=== PATIENT | male | born 1950 | race Caucasian/White ===

== ENCOUNTER 2025-04-09 08:27 | Outpatient (CLI) | payer MEDICARE, MEDICAID, SELFPAY ==
--- OUTSIDE RECORDS SUMMARY | 2025-04-09 08:59 | XMS_ITS | Continuity of Care Document ---
Author Organization [employer] Address [address] [place] [id number] Phone Care Team Providers Care Coutierier Name Role Phone Javier CONTRERAS LEGAL RESEARCHER-C, Tasha Unavailable Unavai lable Allergies, Adverse Reactions, Alerts Substance Reaction Status Criticality ampicillin Hives/Skin Rash Active No Informati on Iodinated Contrast Media Passed out Active No Information Medications Medication Instructions Dosage Effective Dates (start - stop) Status Comments ATORVASTATIN 20MG++++++++++++++++ TAKE 1 TABLET BY ORAL ROUTE EVERY NIGHT. - Active METOPROL TAR 25MG+++++++++++++++1S T TAKE 1 TABLET BY ORAL ROUTE 2 TIMES EVERY DAY 25 MG - Active LISINOPRIL 40MG+++++++++++++++ TAKE 1 TABLET BY ORAL ROUTE EVERY DAY - Active AMLODIPINE 5MG+++++++++++++ TAKE 1 TABLET BY ORAL ROUTE 2 TIMES EVERY DAY 5 MG - Active JARDIANCE 25MG++++++++++ TAKE 1 TABLET BY ORAL ROUTE EVERY DAY IN THE MORNING - Active blood pressure test kit-wrist cuff Check blood pressure twice daily. - Active METFORMIN 500 MG+++++++++++++++ TAKE 1 TABLET BY ORAL ROUTE 2 TIMES EVERY DAY WITH MORNING AND EVENING MEALS 500 MG - Active nitroglycerin 0.[address] 1 tablet by sublingual route at the 1st sign of attack; may repeat in 5 min until relief x 3 tabs MAX, GO TO ER - Active One-A-Day Essential tablet 1 tab po qd - Active aspirin 325 mg tablet take 1 tablet by oral route every day 325 MG - Active METOPROL TAR 25MG+++++++++++++++KE Y TAKE 1 TABLET BY ORAL ROUTE 2 TIMES EVERY DAY 25 MG - No Longer Active LISINOPRIL 40MG+++++++++++++++ TAKE 1 TABLET BY ORAL ROUTE EVERY DAY - No Longer Active ATORVASTATIN 20MG+++++++++++++ TAKE 1 TABLET BY ORAL ROUTE EVERY NIGHT. - No Longer Active AMLODIPINE 5MG+++++++++++++++++ TAKE 1 TABLET BY ORAL ROUTE 2 TIMES EVERY DAY 5 MG - No Longer Active Procedures Procedure Date OFFICE/OUTPATIENT VISIT, EST OFFICE/OUTPATIENT VISIT, EST OFFICE/OUTPATIENT VISIT, EST ROUTINE VENIPUNCTURE OFFICE/OUTPATIENT VISIT, EST Medicare Wellness, subseq visit 023 Depression screen annual OFFICE/OUTPATIENT VISIT, EST OFFICE/OUTPATIENT VISIT, EST Medicare Wellness, subseq visit 022 Depression screen annual OFFICE/OUTPATIENT VISIT, EST OFFICE/OUTPATIENT VISIT, EST OFFICE/OUTPATIENT VISIT, EST OFFICE/OUTPATIENT VISIT, EST PHONE E/M BY PHYS 11-20 MIN OFFICE/OUTPATIENT VISIT, EST OFFICE/OUTPATIENT VISIT, EST PRO PHONE CALL 21-30 MIN ROUTINE VENIPUNCTURE OFFICE/OUTPATIENT VISIT, EST OFFICE/OUTPATIENT VISIT, EST OFFICE/OUTPATIENT VISIT, EST OFFICE/OUTPATIENT VISIT, EST ROUTINE VENIPUNCTURE OFFICE/OUTPATIENT VISIT, EST OFFICE/OUTPATIENT VISIT, EST OFFICE/OUTPATIENT VISIT, EST COMPLETE CBC W/AUTO DIFF WBC ROUTINE VENIPUNCTURE OFFICE/OUTPATIENT VISIT, EST OFFICE/OUTPATIENT VISIT, NEW Advance Directives Directive Yes / No Effective Date File Name No Information Encounters Encounter Description Practice Location Reason(s) For Visit Diagnoses Date Provider Providers Copied on Encounter [facility], [address] [place] [address], [facility], tel:[phone] [facility] No Information 4 Javier Tasha. [address], [place], [facility][note 3], [place]. tel: [phone] [facility], [address] [place] [address], [facility], tel:[phone] [place] [address] No Information 4 Javier Tasha. [address], [place], [facility][note 3], [place]. tel: [phone] OFFICE/OUTPA TIENT VISIT, [facility], [address] [place] [address], [facility], tel: [phone] [facility] ER FOLLOW UP (chief complaint) Bladder massEnlarged prostateInfrarenal abdominal aortic aneurysm (AAA) without rupture 4 Javier Tasha. [address], [place], [facility][note 3], [place]. tel: [phone] [facility], [address] [place] [address], [facility], [place] tel: [phone] [facility] Abnormal CT scan, lungAAA (abdominal aortic aneurysm) without rupture 4 Javier Tasha. [address], [facility][note 3], [place]. tel: [phone] OFFICE/OUTPA TIENT VISIT, [facility], [address] [place] [address], [facility], [place] tel:[phone] [facility] 6 MONTH CHECK UP (chief complaint) Chronic bilateral low back pain with bilateral sciaticaLumbago with sciatica, right sideOther chronic painStatus post fallChronic left hip painType 2 diabetes mellitus with chronic kidney disease, without long-term current use of insulin, unspecified CKD stageEssential (primary) hypertensionMixed hyperlipidemiaNico bernadette dependence, cigarettes, uncomplicated Hans- 0 4 Javier Tasha. [address] [place], [place], [facility][note 3], [place]. tel: [phone] [facility], [address] [place] [address], [facility], [place] tel:[phone] [facility] No Information 4 Javier Tasha. [address] [place], [address], [place]. tel: [phone] OFFICE/OUTPA TIENT VISIT, [facility], [address] [place] [address], [address], [place] tel:[phone] [facility] diabetes (chief complaint) Type 2 diabetes mellitus without complication, without long-term current use of insulinHyperalbumi nemiaEssential (primary) hypertension 3 Javier Tasha. [address] [place], [address], [place]. tel: [phone] OFFICE/OUTPA TIENT VISIT, [facility], [address] [place] [address], [address], [place] tel:[phone] [facility] LAB DRAW (chief complaint) Essential (primary) hypertensionHyperl ipidemia, unspecified hyperlipidemia type Nov- 3 Javier Tasha. [address] [place], [address], [place]. tel: [phone] [facility], [address] [place] [address], [address], [place] tel:[phone] [facility] No Information 3 Javier Tasha. [address] [place], [address], [place]. tel: [phone] [facility], [address] [place] [address], [facility], [place] tel:[phone] [facility] MCR wellness (chief complaint) Medicare annual wellness visit, subsequentBMI 29.0-29.9,adultAAA (abdominal aortic aneurysm) without ruptureEssential (primary) hypertensionGenera lized psoriasisH/O myocardial infarction, greater than 8 weeksH/O two vessel coronary artery bypass graftHyperlipidemi a, unspecified hyperlipidemia typeObstructive sleep apneaPulmonary nodulesType 2 diabetes mellitus with chronic kidney disease, without long-term current use of insulin, unspecified CKD stageNicotine dependence, cigarettes, uncomplicated 3 Jvaier Tasha. [address] [place], [address], [place]. tel: [phone] OFFICE/OUTPA TIENT VISIT, [facility], [address] [place] [address], [facility], [place] tel:[phone] [facility] CHECK UP (chief complaint) Essential (primary) hypertensionType 2 diabetes mellitus without complication, without long-term current use of insulinHyperlipide cathie, unspecified hyperlipidemia type 3 Javier Tasha. [address] [place], [address], [place]. tel: [phone] OFFICE/OUTPA TIENT VISIT, [facility], [address] [place] [address], [address], [place] tel:[phone] [facility] LIVING WILL HELP (chief complaint) Living will, counseling/discuss ionPulmonary nodules 2 Javier Tasha. [address] [place], [address], [place]. tel: [phone] [facility], [address] [place] [address], [address], [place] tel:[phone] [facility] H/O myocardial infarction, greater than 8 weeksH/O two vessel coronary artery bypass graftObstructive sleep apneaEssential (primary) hypertension 2 Javier Cordova. [address] [place], [address], [place]. tel: [phone] [facility], [address] [place] [address], [address], [place] tel: [phone] [facility] wellness (chief complaint) Encounter for Medicare annual wellness exam 2 Javier Cordova. [address] [place], [address], [place]. tel: [phone] OFFICE/OUTPA TIENT VISIT, [facility], [address] [place] [address], [address], [place] tel: [phone] [facility] [place] - LAB DRAW (chief complaint) Hyperlipidemia, unspecified hyperlipidemia type 2 Breckleatha Porsha. [address] [place] [address], [address], [place]. tel: [phone] OFFICE/OUTPA TIENT VISIT, [facility], [address] [place] [address], [address], [place] tel: [phone] [facility] FOLLOW UP (chief complaint) Traumatic rhabdomyolysis, subsequent encounterUncontrol led hypertensionHospit al discharge follow-up 2 Javier Cordova. [address] [place], [address], [place]. tel: [phone] OFFICE/OUTPA TIENT VISIT, [facility], [address] [place] [address], [address], [place] tel: [phone] [facility] PRE OP PHYSICAL (chief complaint) Cataract of right eye, unspecified cataract typePre-op exam 2 Javier Cordova. [address] [place], [address], [place]. tel: [phone] OFFICE/OUTPA TIENT VISIT, [facility], [address] [place] [address], [address], [place] tel:[phone] [facility] PRE OP CATARACT (chief complaint) Cataract of both eyes, unspecified cataract typePre-op examination 2 Javier Tasha. [address] [place], [address], [place]. tel: [phone] PHONE E/M BY PHYS 11-20 MIN [facility], [address] [place] [address], [address], [place] tel: [phone] [facility] 6 MONTH CHECK UP (chief complaint) Essential hypertensionType 2 diabetes mellitus with chronic kidney disease, without long-term current use of insulin, unspecified CKD stageAAA (abdominal aortic aneurysm) without rupture 1 Javier Tasha. [address] [place], [address], [place]. tel: [phone] OFFICE/OUTPA TIENT VISIT, [facility], [address] [place] [address], [address], [place] tel: [phone] [facility] 4 MONTH CHECK UP (chief complaint) COVID SCREENING COMPLETED/ 97.6 TEMP AT ARRIVAL (chief complaint) Type 2 diabetes mellitus with chronic kidney disease, without long-term current use of insulin, unspecified CKD stageEssential hypertensionHyperl ipidemia, unspecified hyperlipidemia type 0 Javier Tasha. [address] [place], [address], [place]. tel: [phone] OFFICE/OUTPA TIENT VISIT, [facility], [address] [place] [address], [address], [place] tel: [phone] [facility] LABS (chief complaint) Essential hypertension 0 Javier Tasha. [address] [place], [address], [place]. tel: [phone] [facility], [address] [place] [address], [address], [place] tel:[phone] [facility] 4 MONTH CHECK UP (chief complaint) Essential hypertensionHyperl ipidemia, unspecified hyperlipidemia typeType 2 diabetes mellitus with chronic kidney disease, without long-term current use of insulin, unspecified CKD stage 0 Javier Tasha. [address] [place], [address], [place]. tel: [phone] OFFICE/OUTPA TIENT VISIT, [facility], [address] [place] [address], [address], [place] tel: [phone] [facility] 4 MONTH CHECK UP (chief complaint) Essential hypertensionAAA (abdominal aortic aneurysm) without ruptureGeneralized psoriasisType 2 diabetes mellitus with chronic kidney disease, without long-term current use of insulin, unspecified CKD stageObstructive sleep apnea 9 Javier Tasha. [address] [place], [address], [place]. tel: [phone] OFFICE/OUTPA TIENT VISIT, [facility], [address] [place] [address], [facility], [place] tel: [phone] [facility] 4 MONTH CHECK UP (chief complaint) Type 2 diabetes mellitus with chronic kidney disease, without long-term current use of insulin, unspecified CKD stageGeneralized psoriasisObstructi ve sleep apneaEssential hypertension 9 Javier Tasha. [address] [place], [address], [place]. tel: [phone] OFFICE/OUTPA TIENT VISIT, [facility], [address] [place] [address], [address], [place] tel: [phone] [facility] BLOOD PRESSURE CHECK (chief complaint) Blood pressure check 9 Papi Rodriguez. [address] [place] [address], [address], [place]. tel: [phone] OFFICE/OUTPA TIENT VISIT, [facility], [address] [place] [address], [address], [place] tel: [phone] [facility] LAB FOLLOW UP (chief complaint) Essential hypertensionHyperl ipidemia, unspecified hyperlipidemia typeType 2 diabetes mellitus without complication, without long-term current use of insulinAllergic contact dermatitis, unspecified trigger 9 Javier Tasha. [address] [place], [address], [place]. tel: [phone] OFFICE/OUTPA TIENT VISIT, [facility], [address] [place] [address], [address], [place] tel: [phone] [facility] [place] - LAB DRAW (chief complaint) Type 2 diabetes mellitus with unspecified complications 0201 9 Javier Tasha. [address] [place], [facility][note 3], [place]. tel: [phone] OFFICE/OUTPA TIENT VISIT, [facility], [address] [place] [address], [address], [place] tel: [phone] [facility] 3 month med check (chief complaint) Essential hypertensionType 2 diabetes mellitus with complication, without long-term current use of insulinTobacco dependence 9 Javier Tasha. [address], [facility][note 3], [place]. tel: [phone] OFFICE/OUTPA TIENT VISIT, [facility], [address] [place] [address], [address], [place] tel: [phone] [facility] blood pressure check (chief complaint) Blood pressure check 8 Javier Tasha. [address], [facility][note 3], [place]. tel: [phone] [facility], [address] [place] [address], [address], [place] tel: [phone] [facility] Essential hypertensionBlood pressure checkAAA (abdominal aortic aneurysm) without rupture 8 8 Javier Tasha. [address] [place], [address], [place]. tel: [phone] [facility], [address] [place] [address], [address], [place] tel: [phone] [facility] here for blood pressure check (chief complaint) Essential hypertension 5 8 Javier Tasha. [address], [facility][note 3], [place]. tel: [phone] OFFICE/OUTPA TIENT VISIT, [facility], [address] [place] [address], [facility], tel:[phone] [facility] [place] - BLOOD DRAW (chief complaint) Essential hypertensionHyperl ipidemia, unspecified hyperlipidemia typeScreening for cardiovascular conditionScreening for malignant neoplasm of prostateType 2 diabetes mellitus with complication, without long-term current use of insulin 0 2 8 Javier Tasha. [address] [place], [address], [place]. tel: [phone] OFFICE/OUTPA TIENT VISIT, [facility], [address] [place] [address], [address], tel:[phone] [facility] EST CARE (chief complaint) Establishing care with new doctor, encounter forEssential hypertensionHyperl ipidemia, unspecified hyperlipidemia typeType 2 diabetes mellitus with complication, without long-term current use of insulinScreening for cardiovascular conditionScreening for malignant neoplasm of prostateH/O myocardial infarction, greater than 8 weeksH/O two vessel coronary artery bypass graftTobacco dependence Jul-0 8 Javier Tasha. [address] [place], [address], [place]. tel: [phone] Family History Family Member Type Diagnosis Age At Onset Paternal grandfather Problem (finding) Myocardial infa rction Brother Problem (finding) Myocardial infarction Sister Problem (finding) Myocardial infarction Father Problem (finding) Myocardial infarction Mother Problem (finding) Diabetes mellitus Immunizations Vaccine Date Status Comments Moderna COVID-19 Vaccine administered [facility]: Other Registry Moderna COVID-19 Vaccine administered [facility]: Other Registry Payers Payer name Insurance type Covered libertarian ID Authorabbya tileatha(s) [facility] [id number] Social History Type Description Quantity Date Captured Comments Sex Male Smoking Status No Information Chief Complaint And Reason For Visit No Information Reason For Referral Reason For Referral No Information Plan Of Treatment Date Type Action Status Goal Tobacco cessation counseling completed Goal Tobacco cessation counseling completed Goal Tobacco cessation counseling completed Goal Tobacco cessation counseling completed Keyon-26-2023 Goal Tobacco cessation counseling completed Goal Tobacco cessation counseling completed Goal Tobacco cessation counseling completed Goal Tobacco cessation counseling completed Goal Tobacco cessation counseling completed Goal Tobacco cessation counseling completed Goal Tobacco cessation counseling completed Goal Tobacco cessation counseling completed Goal Tobacco cessation counseling completed Goal Tobacco cessation counseling completed Goal Tobacco cessation counseling completed Goal Tobacco cessation counseling completed Referral Ordered: Urology (related to Bladder mass) ordered Referral Ordered: Oncology (related to Bladder mass) ordered Referral Ordered: Referrals: Oncology. Location: [facility]. Assume care ordered Referral Ordered: Referrals: Urology. Location: [facility]. Assume care ordered Referral Ordered: Vascular Surgery (related to AAA (abdominal aortic aneurysm) without rupture) ordered Referral Ordered: Referrals: Vascular Surgery. Location: [facility]. Assume care ordered Referral Ordered: CT ABD & PELVIS W/CONTRAST Appointment date/timeframe: 05/06/2024 ordered Referral Ordered: T-SPINE 2 VIEW ordered Referral Ordered: CT LOW DOSE LUNG CANCER SCREENING Appointment date/timeframe: 04/04/2024 ordered Referral Ordered: X-RAY EXAM HIP UNI 2-3 VIEWS Left ordered Referral Ordered: X-RAY EXAM OF L-S 2 OR 3 VIEWS ordered Referral Ordered: CT THORAX W/O DYE Appointment date/timeframe: 08/09/2022 ordered Referral Referred To: Zonia Schuler [address] [place] [address], [address] [phone] Ordered: Referrals: Allopathic & Osteopathic Physicians : Internal Medicine. Zonia Schuler. Evaluate and treat Appointment date/timeframe: 04/25/2022 ordered Referral Referred To: Aquiles Wilkinson [address] [place], [place], [phone] Ordered: Referrals: Allopathic & Osteopathic Physicians : Surgery : Vascular Surgery. Aquiles Wilkinson. Evaluate and treat Appointment date/timeframe: 01/31/2021 ordered Referral Ordered: US ABDL AORTA SCREEN AAA Appointment date/timeframe: 12/06/2020 ordered Referral Ordered: CT ABD & PELVIS W/O CONTRAST AAA ordered Referral Ordered: CT ANGIO ABDOM W/O & W/DYE Appointment date/timeframe: 08/15/2018 ordered Referral Ordered: X-RAY EXAM CHEST 2 VIEWS ordered Referral Ordered: ELECTROCARDIOGRAM, COMPLETE ordered Referral Ordered: RENAL ULTRASOUND COMPLETE STUDY AAA series Appointment date/timeframe: 07/25/2018 ordered Patient Education Benign Prostat ic Hyperplasia: Care Instructions completed Patient Education Home Blood Pressure [place] t: About This Test completed Patient Education Home Blood Pressure [place] t: About This Test completed Patient Education Learning About High Cho lesterol completed Patient Education Body Mass Index: Care I nstructions completed Patient Education Well Visit, Over 65: Ca re Instructions completed Patient Education Learning About High Cho lesterol completed Patient Education Advance Directives: Car e Instructions completed Patient Education Well Visit, Over 65: Ca re Instructions completed Patient Education Learning About High Cho lesterol completed Patient Education Rhabdomyolysis: Care In structions completed Patient Education Cataract Surgery: What to Expect at H~ completed Patient Education Abdominal Aortic Aneury sm: Care Instr~ completed Patient Education DASH Diet: After Your V isit completed Patient Education High Blood Pressure: Af ter Your Visit completed Patient Education High Blood Pressure: Af ter Your Visit completed Patient Education Learning About CPAP for Sleep Apnea completed Patient Education Learning About LAITH Inhi bitors completed Patient Education Sleep Apnea: After Your Visit completed History Of Present Illness Encounter Date Complaint History Of Prese nt Illness ER FOLLOW UP Pt is here for e r f/u from [facility] on 05/06. Pt states he had blood in his urine. CT of abdomen and labs were done. Pt states they didn't send him home with any medications and symptoms have since subsided. Pt states they mentioned getting an urology referral. Comments: Pt pre sents to the clinic for an ER follow up. Pt states that he went to [place] to have his scheduled CT scan for his aneurysm but states that he woke up that am with beet juice colored urine. PT states that he was having some mild pain and had some issues urinating with pressure and was passing a large blood clot. Pt states that Sunday was the first day that he had blood in his urine. Pt states that he was evaluated in ER and discharged and instructed to follow up with his PCP for a referral for a possible bladder mass. Pt states that his urine has cleared up and denies any blood in his urine at this time. Pt denies any abd pain. Pt's CT report shows focal and somewhat masslike hyperattenuation lesion in the left posterior urinary bladder. Adjacent wispy hyperattenuation is also seen. This is concerning for neoplasm with adjacent hemorrhage. Pt also had a noted prostatomegaly and recommended to evaluated with a PSA. Pt's PSA was done on 01/31/24 and it was 1.42. Pt is being scheduled for a vascular appt due to the aneurysm. I did speak with the patient about referring him to urology and oncology and he states agreement. Comments: Kris edgar presents to the clinic today for a 6-month checkup with regards to his type 2 diabetes, hypertension, hyperlipidemia, and chronic smoking. Patient states that he has been taking his medications as directed. Patient denies any current complaints or concerns about his medications at this time. Patient states that he does not typically check his blood sugar every day. Patient states that he will probably not check his blood sugar every day. I did advise the patient that I would like him to check it if he is ill and he states verbal understanding. I did explain the benefits of checking his blood sugar daily and he states that he will take it under advisement. Patient denies any wounds to his body or feet at this time. Patient states that he does check his feet daily. Patient states that he does try to eat a healthy diet but is restricted due to cost associated with his grocery bill. Patient states that he does drink water every day. Patient states that he is not a very active person but does try to get out and walk at times. Patient's vital signs were reviewed today and his blood pressure is noted to be slightly elevated at 145/69 with a pulse of 50 and his oxygen saturations was noted to be 90%. Patient was advised that the goal of his blood pressure is 120/80 or below. I did speak with the patient about checking his blood pressure in the morning and at night and to bring his readings with him in about a week so we can review and he states verbal understanding. Patient states that he has not missed any of his medication dosing. Patient states overall he has been doing fairly well. Patient denies any recent falls. Patient states that his main concern is that he has been having a lot of low back and left hip pain. Patient denies any injury or trauma to his back and hip except for it has been kind of lingering since he was found on the floor in his apartment. Patient denies any loss of bowel or bladder control. Patient denies any saddle numbness. I did speak with the patient about getting him some x-rays and to review those and to make the next step and he states verbal agreement. I also did speak with the patient about the fact that he does still continue to smoke at least a pack a day and that he has smoked for approximately 55 years. I did recommending that he is due for his low-dose lung CT and he states verbal agreement. Patient was encouraged to stop smoking and he states verbal understanding. Patient denies any other concerns at this time and was encouraged to follow-up in 6 months. 6 MONTH CHECK UP diabetes Managing with: O ral medications. Comments: Pt's V S were reviewed today and noted to be elevated. Pt's initial BP was noted to be 173/83 with a recheck of 169/79. Pt states that he has smoked approx 2-3 cigs this morning and drank 2-3 cups of coffee before coming to his appt. Pt was advised that the goal of his BP is 120/80 or below. Pt states that he has been taking his blood medication as directed. Pt denies any complaints or concerns about their medications or health at this time. Pt denies any chest pain, chest pressure, SOB, cough, dizziness, or lower ext edema. Pt was encouraged to increase their intake of water daily. Avoid excessive caffeine and sodas. Pt was encouraged to decrease salt intake. Pt was encouraged to eat a health diet. Pt was encouraged to check BP twice daily and record and bring to next appt.Pt states that he has been taking his diabetes medications as directed. Pt denies any complaints or concerns about his health at this time. Pt recently had his labs done and they were reviewed with him. Pt was advised that his micro albumin and Cr was elevated. I spoke with him about jardiance and how the medication works and he states that he does not have prescription insurance currently and will have after the beginning of the year and will consider it then. Pt denies any wounds to his body or feet at this time. Pt states that he does check his feet daily. Pt states that he does not check his blood sugars daily and was encouraged to do so and he states that he will think about it. PT denies any complaints or concerns about his health at this time. PT was encouraged to eat a diet rich in lean meats, fruits, and vegetables. Pt was encouraged to increase his intake of water daily. Pt was encouraged to use proper sleep hygiene. Pt was encouraged to exercise and stop smoking and he states understanding. LAB DRAW [facility] wellness Depression scree joe score was 2. The client has not felt depressed and has had interest and pleasure doing things recently. Functional Status: (Functional status has not changed) on 03/23/2023. Cognitive Status: (Cognitive status has not changed) on 03/23/2023. The ''Up and Go'' test took less than 30 seconds andthe client does not need help with activities of daily living. The client is at risk for falls. The client has not fallen in the last year. The fall(s) did not result in injury. Client's activity level is sedentary. Client exercises occasionally. The client has smoke detectors, carbon monoxide detectors, gas heating in the home. There is no radon in the client's home. Client reports using a seatbelt in vehicles. Client reports a 2000 calorie diet. Client denies recent weight gain. Client denies recent weight loss. Client reports taking a calcium supplement. Client reports taking a vitamin D supplement. Client reports taking a multivitamin daily. Client reports taking folic acid daily. Relevant history is negative for passive vaping exposure and alcohol use. In the past year the client has had 4 or more drinks in a day 0 time(s). Comments: PT's B IL is noted to be 29.13. Pt was advised of the risks and concerns associated with it. Pt was advised to eat a proper diet, rich in lean meats, fruits, and vegetables. Pt was encouraged to increase her intake of water daily. Pt was encouraged to increased her exercise with walking 3-5 times per week. PT was encouraged to use proper sleep hygiene. Pt was advised that a normal BMI is noted to be 25. CHECK UP Pt states Cardio logy decreased his Metoprolol to 50mg 1/2 tab po bid, and he states he has not had any metformin for a few weeks, he states he was unable to get a refill until after his visit today. CHECK UP (comments) Patient pres ents to the clinic for 6-month checkup with regards to his hypertension, type 2 diabetes, and hyperlipidemia. Patient states that he recently seen his air pollution analyst and they did decrease his metoprolol dosing to 25 mg twice a day. Patient states that he is also been out of his metformin for a couple of weeks because the pharmacy stated he needed an appointment. Patient was advised that we do not want him to run out of his medicines and to always call our office and we will refill that for him until he is able to be seen and he states verbal understanding. Patient's states that he has been taking all of his other medications as directed. Patient denies any complaints or concerns at this time. Patient's vital signs were reviewed today and his blood pressure is noted to be elevated at 174/81 with a recheck of 161/76. Patient was advised that the goal of his blood pressure is 120/80 or below. Patient denies any chest pain, chest pressure, shortness of breath, cough, dizziness, or lower extremity edema. Patient states that he did take his blood pressure medicine prior to coming in and states that he had his blood pressure checked at his air pollution analyst's office and it was 130/80 the other day. Patient denies any other complaints or concerns about his health at this time. Patient states that he has not checked his blood sugar in a while. Patient states that he does not typically check it daily. Patient was encouraged to check it daily and he states understanding. Patient was encouraged to eat a diet rich in lean meats, fruits, and vegetables. Patient was encouraged to exercise 3-5 times per week with something simple as walking. Patient was encouraged to use proper sleep hygiene. Patient was encouraged to increase his intake of water daily. Patient was encouraged to follow-up in 6 months and to call the office with any acute concerns. LIVING WILL HELP LIVING WILL HELP (comments) Patient presents to the clinic today to discuss his living well and also to complete it. Patient did bring a packet with him and states that he has been reviewing the packet and would like to make his daughter's his power of trust and estates attorney and has discussed this with them. I did sit with the patient for an extended period of time discussing the numerous options available with regards to a living will and treatment options that are available and he states verbal understanding. Patient and I did work on completing the living well and we did have witnesses within our office and he is also going to have his daughter sign it and bring us back a copy. I also was speaking with the patient about his previous hospitalization at [facility] and that he did have some numerous lung nodules that they did recommend a 6-month follow-up on and I will order that CT for him. [facility] wellness Depression scree joe score was 1. The patient has not felt depressed and has had interest and pleasure doing things recently. Functional Status: (Functional status has not changed) on 03/17/2022. Cognitive Status: (Cognitive status has not changed) on 03/17/2022. The ''Up and Go'' test took less than 30 seconds and the patient does not need help with activities of daily living. The patient is not at risk for falls. The patient has fallen 1 times in the last year. The fall(s) resulted in injury. Details: HOSPITAL STAY. Patient's activity level is sedentary. Patient exercises occasionally. The patient has smoke detectors, carbon monoxide detectors, gas heating in the home. There is no radon in the patient's home. Patient reports using a seatbelt in vehicles. Patient reports a 2000 calorie diet. Patient denies recent weight gain. Patient denies recent weight loss. Patient does not take calcium. Patient reports taking a vitamin D supplement. Patient reports taking a multivitamin daily. Patient reports taking folic acid daily. Relevant history is positive for tobacco use, passive smoke exposure. Relevant history is negative for passive vaping exposure, alcohol use. In the past year the patient has had 4 or more drinks in a day 0 time(s). [facility] wellness (comments) Pt's risk strat score is noted to be 14. Pt states depending on his insurance, he will participate in our CCM program. Pt declines any complaints or concerns at this time. [place] - LAB DRAW HOSPITAL FOLLOW UP Pt states the y had him on a 30 day dosing of prednisone, he states he called the Dr and asked when they were going to take him off of the med, and he states she told him they were taking him off of it, but then got another script fo 45 days, so pt states he weaned himself off of the prednisone, he states his last day was Tues. HOSPITAL FOLLOW UP (comments) Pt presents to the clinic for a hospital follow up. Pt states that he tripped at home over his cat and fell landing on a chair with metal casters and was unable to get up. Pt states that he fell on 12/26/2021 at approx 05:30 am and laid there until his land lords son seen him at approx 7 pm and EMS was called. Pt was transported to [facility] for evaluation. Pt states that he was evaluated and transferred to [facility] for admission. Pt was dx with rhabdo. Pt states that he was in the hospital for approx 1 week. Pt states that he was then transferred to [facility] for rapid recovery. PT states that he was at the correction for approx 1 week. Pt states that he has been home for approx 2-3 weeks. Pt states that he has follow up with the [facility] per the hospital discharge follow up. Pt states that he seen Dr. Tse. Pt states that they had him on a long dose of prednisone and he states that he stopped it on Tu at 20mg daily. I did speak with the patient about concerns of stopping steroids due to his rhabdo and he states understanding but does not like being on steroids. PT states that he feels like he is doing well at home. Pt states that his appetite is good. Pt states that he lost weight while he was in the hospital and correction but states that he has a hearty appetite at home. PT states they increased the amlodipine to 10mg daily and started him on prednisone. PT denies any falls since being home. Pt denies any complaints of concerns about his health as this time. Pt also states that he does not want his son, Javier Collado as his POA. Pt states that he wants his daughter, Hilary Hopkins as his POA. Pt was also given a Living will packet and encouraged to contact a driver's license examiner to help him complete his paperwork that he wants done. PRE OP PHYSICAL (comments) Pt presents to the clinic for a pre-op e xam. Pt is scheduled to have surgery with Dr. Liz on 12/15/21 for right eye cataract removal. 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 Wilkinson in 01/2021 and he is scheduled to see him in 01/2022.Spontaneous joint hemorrhage - DeniesExcessive nose bleeds - DeniesHx of Seizures - DeniesHx of tremors - Mild tremor to the left handPMHType 2 DMCKDHTNHyperlipidemiaOSAPsoriasisAAA - unrepairedMISurgical HxColonoscopyCABG x 3AppyI discussed with the patient the recommendation of early ambulation. Proper hydration and routine lab monitoring. Surgical course explained. Patient is well informed of surgical risk. Current medications reviewed. Proper diet and activity pre and post operatively discussed. PRE OP PHYSICAL PRE OP CATARACT (comments) Pt presents to the clinic for a pre-op e xam. Pt is scheduled to have surgery with Dr. Liz on 11/08/21 for left eye cataract removal. 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 Wilkinson in 01/2021 and he is scheduled to see him in 01/2022.Spontaneous joint hemorrhage - DeniesExcessive nose bleeds - DeniesHx of Seizures - DeniesHx of tremors - Mild tremor to the left handPMHType 2 DMCKDHTNHyperlipidemiaOSAPsoriasisAAA - unrepairedMISurgical HxColonoscopyCABG x 3AppyI discussed with the patient the recommendation of early ambulation. Proper hydration and routine lab monitoring. Surgical course explained. Patient is well informed of surgical risk. Current medications reviewed. Proper diet and activity pre and post operatively discussed. PRE OP CATARACT 6 MONTH CHECK UP (comments) Pt's visit was done via phone due to the COVID-19 concerns. Pt was contacted via my office phone to their home. Moon contacted the patient and performed her registration activities, Moon AYALA performed the med recon, depression screening, verbal consent for treatment, fall risk, smoking and vaping screening, allergy recon, and pertinent VS and the call was transferred to myself at the office. Pt and I were the only ones on the phone call.Patient's visit today is a 6-month checkup with regards to his hypertension along with his type 2 diabetes. Patient states that he has been taking his medications as directed. Patient denies any current complaints or concerns about his medications at this time. Patient states overall he has been failing fairly well and denies any concerns about his health at this time. Patient states that he does continue to smoke and was again encouraged to stop smoking to patient states understanding. Reduce his risk of heart attack, stroke, and an aortic dissection. Patient states that he has not followed up with [facility] due to his AAA and states that he really did not care for the doctor that he was previously seeing. Patient was advised that I really would like him to follow-up with cardiology yearly at least to have someone follow him for his AAA screening and he states verbal understanding. Patient is requesting a female physician preferably in [place] if possible. I did advise patient that I would place a referral and he states verbal understanding. Patient denies any chest pain, short chest pressure, shortness of breath, cough, dizziness, or lower extremity edema. Patient states overall he has been doing fairly well. Patient states that he is trying to eat a healthier diet. Patient was encouraged to exercise 3-5 times per week with something simple as walking. Patient was encouraged to increase his intake of water daily. Patient was encouraged to use proper sleep hygiene and states that he does use a CPAP machine as directed. Patient was encouraged to call the office with any acute concerns. Patient states that overall his blood sugars have been doing fairly well but he does not check them regularly. Patient was encouraged to check them daily and to record them and bring them to his next appointment. Patient was encouraged that we do need to do labs as soon as possible and he states that he will do those at the [facility] in January. Patient was encouraged to follow-up in 6 months and to call the office with any acute concerns.Patient's visit lasted 20 minutes. 6 MONTH CHECK UP 4 MONTH CHECK UP (comments) Patient presents to the clinic today to discuss his most recent labs that he had drawn at [facility] on 04/09/2020. Patient's glucose was noted to be 102. Patient's total cholesterol was 110, triglycerides 247, LDL 28, HDL 33. Patient's hemoglobin A1c was noted to be 6.6. Patient's PSA was 1.42. Patient's CBC had a white blood cell count of 8.09, hematocrit 47.5, hemoglobin 15.4, and platelets at 269. Patient states that he has been taking all of his medications as directed. Patient denies any current complaints or concerns about his medications at this time. I did review the patient's cholesterol results with him and I did advise him that his LDL is a little too suppressed and I am going to reduce his atorvastatin from 40 mg daily down to 20 mg daily and we will recheck his labs in the next 3 to 6 months and he states verbal understanding. Patient states that he checks his feet daily. Patient denies any wounds to his body or feet at this time. Patient states that he is still continuing to smoke and I did advise him to try and stop smoking and we discussed the diseases and risk associated with smoking and he states verbal understanding. Patient states overall he is doing well and denies any current complaints or concerns about his health at this time. Patient's blood pressure was noted to be 142/78 today but states he is taking his blood pressure medicine as directed and states that he is always had an elevated blood pressure when he was at the doctor's office. Patient denies any chest pain, chest pressure, shortness of breath, dizziness, headaches, or lower extremity edema. Patient was encouraged to follow-up in 4 months states verbal understanding. 4 MONTH CHECK UP COVID SCREENING COMPLETED/ 97.6 TEMP AT [facility] 4 MONTH CHECK UP 4 MONTH CHECK UP (comments) Pt's visit was done via telehealth/phone due to the COVID-19 concerns. Pt was contacted via my office phone to their home. Martina Colon contacted the patient and performed her registration activities and the calls was transferred to myself at the office. Pt and I were the only ones on the phone call. Patient's visit is for a 3-month checkup with regards to his hypertension, hyperlipidemia, and type 2 diabetes. Patient states that he has been taking his medications as directed. Patient denies any current complaints or concerns about his medications at this time. Patient states that overall he has been doing fairly well. Patient denies any chest pain, chest pressure, shortness of breath, dizziness, or lower extremity edema. Patient states that he has a chronic cough from smoking. Patient was advised to stop smoking and I did discuss the illnesses and diseases associated with. Patient states that his diabetes seems to be doing well and states that he does not typically check his blood sugars daily. Patient was encouraged to check his blood sugars daily but states that he is reluctant to at this time. I did advise the patient that I could send in a meter and he did this time. I did advise him that we do have a. Patient denies any wounds to his body or feet at this time. Patient states that he does check his feet daily. Patient states that overall he has been doing fairly well and is soon to follow-up with air pollution analyst but he does not have an appointment yet. Patient states that they call him for an appointment. Patient was encouraged to eat a diet rich in lean meats, fruits, and vegetables. Patient was encouraged to exercise 3-5 times per week with something simple as walking. Patient was encouraged to increase his intake of water daily. Patient was encouraged to stop smoking. Patient was encouraged to use proper sleep hygiene and to clean his CPAP as directed and he states verbal understanding. Patient was also advised that the goal of his blood pressure is 120/80 or below. Patient was also advised the goal of his hemoglobin A1c would. Patient typically does his labs with [facility] and it has been postponed due to the soto concerns and we will contact him when we open up the [facility] labs and he states understanding. Patient was encouraged to follow-up in 3 months and to call the office with any acute concerns.Patient's visit lasted 25 minutes. 4 MONTH CHECK UP 4 MONTH CHECK UP (comments) Patient presents to the clinic today for a 4-month checkup with regards to his hypertension, type 2 diabetes, and obstructive sleep apnea. Patient states that he is taking his medications as directed. Patient denies any current complaints or concerns about his medications at this time. Patient denies any chest pain, chest pressure, shortness of breath, cough, dizziness, or lower extremity edema. Patient states that he has not followed up with his air pollution analyst recently but states that he is due for his year when soon. Patient states that he is been reviewing old medical records and states that he has not found any records of an aneurysm in the past but states that his air pollution analyst wears that he has had one previously. Patient states that he is following up with him for routine follow-up on his aneurysm. Patient denies any concerns at this time. Patient states that he does check his feet daily. Patient denies any wounds to his feet or body at this time. Patient states that he is still treating his psoriasis but states that a lot of the areas have healed up but states that he is working on a couple other areas and I did provide him with Eucrisa samples today to try this due to his diabetes and trying to avoid steroid cream. Patient is to call the office in a couple weeks to let us know how his areas are healing with regards to the medicine. Patient states that he does not check his blood sugars daily. Patient was encouraged to check his blood sugars daily and to record them and bring them to his next office appointment. Patient states that he is wearing his CPAP daily. Patient states that he does not clean it as often as he should. Patient was encouraged to clean his CPAP daily and was advised of the risk associated with not cleaning it and he states verbal understanding. Patient states that he does feel rested when he wears his CPAP machine. Patient was encouraged to eat a diet rich in lean meats, fruits, and vegetables. Patient was encouraged to exercise 3-5 times per week with something simple as walking. Patient was encouraged to follow-up in 4 months.Patient's blood pressure was noted to be elevated today in the office slightly at 140/78. I did advise the patient that with regards to his aneurysm we are going to start amlodipine 5 mg and I do want him to come back for a blood pressure check in the next 2 weeks and he states verbal understanding. Patient was again and encouraged to stop smoking to reduce his risk and he states verbal understanding. 4 MONTH CHECK UP (comments) Patient presents to the clinic for a 4-m [place] checkup with regards to his type 2 diabetes, obstructive sleep apnea and hypertension. Patient states that he is taking his medications as directed. Patient denies any current complaints or concerns about his medications at this time. Patient states that he does not typically check his blood sugar daily but was advised to check it at least once per day and he states verbal understanding. Patient denies any wounds to his body or feet at this time. Patient states that he does check his feet daily. Patient states that he is working on trying to decrease his smoking to some degree. Patient was encouraged to quit and was advised of the illnesses associated with it and he states verbal understanding. Patient states that the rash to his arms have been getting worse. Patient states that he has tried [id number] hydrocortisone cream with no improvement. Patient states that the area is do not itch but seems to be getting bigger and scalier. I did advise the patient that I would put him on a prednisone taper and advised him to watch his blood sugars because this could raise his blood sugars and I will also provide him with some Eucrisa samples to try and he is to call us in 2 weeks to let us know how he is doing with the rash. Patient states verbal understanding. Patient states that he needs a new CPAP from [facility]. Patient states that he has had his for over 10 years and it does not seem to be operating properly. Patient states that he does clean his equipment as he is supposed to. Patient states that he is not more the equipment in a little while because it does not seem to be operating properly. I did explain the risk and benefits of not treating sleep apnea with the what if's could happen if he does not treat it. Patient states verbal understanding. I advised the patient that I would place a new order and send it over today to [facility] and he states verbal understanding. Patient was advised to eat a diet rich in lean meat, fruits, and vegetables. Patient was encouraged to exercise 3-5 times per week with something simple as walking. Patient was encouraged to follow-up in 4 months and advised that we will check his labs in 2 months and he states verbal understanding. Patient was encouraged to call the office with any acute concerns and he states verbal understanding. 4 MONTH CHECK UP BLOOD PRESSURE CHECK LAB FOLLOW UP (comments) Patient presents to the clinic today for a checkup with regards to his hypertension, hyperlipidemia, type 2 diabetes. Patient recently had labs done on 01/29/2019 and he is here to review patient's CMP was noted to be within normal limits with the exception of his limbs were slightly low at 24. Patient's CMP showed a glucose of 108, BUN and creatinine and GFR within normal limits, sodium and potassium are within normal limits, alk phos, AST, and ALT are within normal limits, patient's cholesterol was noted to be 106, triglycerides 313, LDL 16, HDL 27, his hemoglobin A1c was 6.6, magnesium 2.0. I advised the patient that we would refer these lab results to his air pollution analyst and he states verbal understanding. Patient is doing very well with his blood sugar control and is currently taking metformin 1 tablet twice a day. Patient was encouraged to keep up the good work and to continue to try and work on his triglycerides. Patient states verbal understanding. Patient was encouraged to eat a diet rich in lean meats, vegetables, and fruit. Patient was encouraged to exercise 3-5 times per week with something as simple as walking. Patient states verbal understanding. Patient was provided with information to stop smoking and he states verbal understanding. Patient states that he is smoked for years and it is more of a habit and he will try but he cannot guarantee success. Patient's blood pressure was noted to be elevated today in office of 160/74 and his last reading was 156/80. I advised the patient that we would add a low-dose lisinopril to his evening regimen and he states verbal understanding. Patient is to return in 2 weeks for blood pressure check. Patient denies any chest pain, chest pressure, shortness of breath, cough, dizziness, or lower extremity edema. Patient states that he does have an appointment scheduled with his air pollution analyst in the next couple of weeks. Patient states that he checks daily for wounds and denies any wounds to his body or feet at this time.Patient states that he has a rash to his bilateral forearms. Patient states that he noticed the rash after he switched his laundry softener. Patient denies any warmth, exudate, fever, or chills at this time. Patient states that it does itch and burn from time to time. Patient states that he has been using some [id number] cream but is unsure of what it is at this time. Patient was encouraged to get hydrocortisone cream and to use a good moisturizing lotion to the area twice a day. LAB FOLLOW UP [place] - LAB DRAW 3 month med check (comments) Patient presents to the clinic today for his hypertension and diabetes checkup. Patient states that he has been taking his medications as directed. Patient denies any current complaints or concerns about his medications at this time. Patient states that he has been following up with his air pollution analyst as directed and was evaluated for his aneurysm in his abdomen and it was advised that it has not grown in over 10 years and it was the exact same size as previous. Finishing Technician states that he will monitor and he will follow-up with him yearly for this. Patient states that the air pollution analyst did change his lisinopril dosing from 20 mg twice a day to 40 mg once a day but left all other medications as they were. Patient states that he is checking his feet daily. Patient denies any current complaints or concerns about wounds to his body or his feet. Patient states that he is still smoking but he has been thinking about trying to stop smoking. Patient was encouraged to stop smoking due to the increase of his aneurysm increasing along with his blood pressure and decreasing his peripheral circulation. Patient states verbal understanding. Patient denies any new diagnosis he medications, allergies, surgeries, or doctors since his last visit here previously.I did speak with the patient concerning his insurance concerns and he currently just has Medicare and cannot afford a supplement since his diabetes is fairly well controlled we will see him every 6 months to help eliminate a financial burden and he is to call with any acute concerns and he states verbal understanding. 3 month med check blood pressure check here for blood pressure check [place] - BLOOD DRAW EST CARE (comments) Pt presents to the clinic to establish care. Pt states that he was previously seeing Dr. Faustin. PT states that he has not been seen since 06/2017. Pt states concerns that he has been out of medication since September 2017 due to he did not have a doctor nor insurance. Pt states that he knows that his blood pressure is high and this is why he is here. Pt states that he has been watching his diet and trying to stay as healthy as he can until he could get into to be seen. PT states that he recently was able to get onto medicare in April. Pt also has a lifeline screening review with him in office today to review. Pt states the following:Allergies - Ampicillin, CT dyeMedications - See list OTC - Aspirin 325mg daily Flu - DeniesPneumonia - DeniesImmunizations - 2012Lab - 2017Colonoscopy - Refuses Dentist - No teethVision - 2018Smoke - 1.5 ppdAlcohol - DeniesIllicit - DeniesPMHHTNHyperlipidemiaType 2 DMMISurgeries AppyGSW to abd w/resectionCABG x 2Family HxFather - CAD, CABG Mother - Dementia, Cervical CaPaternal grandfather - MIPaternal grandmother - UnknownMaternal grandfather - CADMaternal grandmother - Cancer EST CARE Functional Status Date Functional Assessmen t No Information Instructions Date Instruction Additional Infor avelino Attend scheduled tae t with specialists. Related to Bladder mass Observe for worsening s/s. Relat ed to Bladder mass Call office with any acute concerns. Related to Bladder mass Attend scheduled tae t with specialists. Related to Enlarged prostate Observe for worsening s/s. Relat ed to Enlarged prostate Call office with any acute concerns. Related to Enlarged prostate Attend scheduled tae t with specialists. 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 Relat ed to Infrarenal abdominal aortic aneurysm (AAA) without rupture Call office with any acute concerns. Related to Infrarenal abdominal aortic aneurysm (AAA) without rupture Take medication as directed. Rel ated to Essential (primary) hypertension Rest, elevation, cold pack Relat ed to Chronic left hip pain Observe for worsenin g s/s. Proper activity. Fall precaution Related to Chronic left hip pain Have xrays completed as soon as possible. Related to Chronic left hip pain Call office with any acute concerns. 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 Relat ed to Type 2 diabetes mellitus with chronic kidney disease, without long-term current use of insulin, unspecified CKD stage Take medication as directed. Rel ated to Type 2 diabetes mellitus with chronic kidney disease, without long-term current use of insulin, unspecified CKD stage Proper diet, exercis e and activity and activity Related to Mixed hyperlipidemia Follow a low sodium diet. Relate d to Essential (primary) hypertension Stop smoking. Related to Essen tial (primary) hypertension Have Ct done as scheduled. Relat ed to Nicotine dependence, cigarettes, uncomplicated Follow a low calorie . Weight management Related to Mixed hyperlipidemia Proper medication in take, observe for side effects Related to Mixed hyperlipidemia Observe for worsening s/s. Relat ed to Type 2 diabetes mellitus without complication, without long-term current use of insulin Encouraged routine e ye, dental and foot care. Immunization Related to Type 2 diabetes mellitus without complication, without long-term current use of insulin Encouraged home bloo d sugar monitoring. Avoid hypoglycemia Related to Type 2 diabetes mellitus without complication, without long-term current use of insulin Proper diet, exercis e and activity. Goal of treatment explained Related to Type 2 diabetes mellitus without complication, without long-term current use of insulin Follow prescribed diet plan. Rel ated to Type 2 diabetes mellitus without complication, without long-term current use of insulin Take medication as directed. Rel ated to Type 2 diabetes mellitus without complication, without long-term current use of insulin Call office with any acute concerns. Related to Type 2 diabetes mellitus without complication, without long-term current use of insulin Low salt diet. Obser ve for worsening symptoms Related to Hyperalbuminemia Increase clear fluids. Related t o Hyperalbuminemia Call office with any acute concerns. Related to Hyperalbuminemia Increase activity. Related to Es sential (primary) hypertension Follow a low sodium diet. Relate d to Essential (primary) hypertension Take medication as directed. Rel ated to Essential (primary) hypertension Take medication as directed. Rel ated to Medicare annual wellness visit, subsequent Quit smoking. Related to Medic are annual wellness visit, subsequent Increase clear fluids. Related t o Medicare annual wellness visit, subsequent Proper diet and exercise. Relate d to Medicare annual wellness visit, subsequent Proper sleep hygiene. Related to Medicare annual wellness visit, subsequent Counseled on dietary changes [id number] Counseled on weight reduction Increase activity. Related to Es sential (primary) hypertension Take medication as directed. Rel ated to Essential (primary) hypertension Follow a low sodium diet. Relate d to Essential (primary) hypertension Encouraged home bloo d sugar monitoring. Avoid hypoglycemia Related to Type 2 diabetes mellitus without complication, without long-term current use of insulin Proper diet, exercis e and activity. Goal of treatment explained Related to Type 2 diabetes mellitus without complication, without long-term current use of insulin Encouraged routine e ye, dental and foot care. Immunization Related to Type 2 diabetes mellitus without complication, without long-term current use of insulin Follow prescribed diet plan. Rel ated to Type 2 diabetes mellitus without complication, without long-term current use of insulin Proper diet, exercis e and activity and activity Related to Hyperlipidemia, unspecified hyperlipidemia type Proper medication in take, observe for side effects Related to Hyperlipidemia, unspecified hyperlipidemia type Follow a low calorie . Weight management Related to Hyperlipidemia, unspecified hyperlipidemia type Observe for worsenin g signs and symptoms Related to Living will, counseling/discussion Avoid medication mis use. Observe for side effect Related to Living will, counseling/discussion Take medication as directed. Rel ated to Living will, counseling/discussion Have xrays completed as soon as possible. Related to Pulmonary nodules Observe for worsenin g signs or symptoms. Fall precaution Related to Pulmonary nodules Importance of treatm ent regimen as well as side effect discussed Related to Pulmonary nodules Counseled on dietary changes Increase clear fluids. Related t o Encounter for Medicare annual wellness exam Proper diet and exercise. Relate d to Encounter for Medicare annual wellness exam Proper sleep hygiene. Related to Encounter for Medicare annual wellness exam Counseled on weight reduction Take medication as directed. Rel ated to Traumatic rhabdomyolysis, subsequent encounter Increase clear fluids. Related t o Traumatic rhabdomyolysis, subsequent encounter Observe for worsening s/s. Relat ed to Traumatic rhabdomyolysis, subsequent encounter Call office with any acute concerns. Related to Hospital discharge follow-up Take medication as directed. Rel ated to Hospital discharge follow-up Observe for worsening s/s. Relat ed to Hospital discharge follow-up Pt is a low risk for bleeding. R elated to Cataract of right eye, unspecified cataract type Pt METS score >4. Related to Cat aract of right eye, unspecified cataract type Pt is a low risk for bleeding. R elated to Cataract of right eye, unspecified cataract type Pt METS score >4. Related to Cat aract of right eye, unspecified cataract type Pt is a low risk for bleeding. R elated to Pre-op examination Pt's METS score is >4. Related t o Pre-op examination Observe for worsening s/s. Relat ed to AAA (abdominal aortic aneurysm) without rupture Follow a low sodium diet. Relate d to Essential hypertension Increase activity. Related to Es sential hypertension Take medication as directed. Rel ated to Essential hypertension Attend scheduled tae t with specialists. Related to AAA (abdominal aortic aneurysm) without rupture Have xrays completed as soon as possible. Related to AAA (abdominal aortic aneurysm) without rupture Take medication as directed. Rel ated to Type 2 diabetes mellitus with chronic kidney disease, without long-term current use of insulin, unspecified CKD stage Have labs completed as soon as possible. 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 Relat ed to Type 2 diabetes mellitus with chronic kidney disease, without long-term current use of insulin, unspecified CKD stage Take medication as directed. Rel ated to Type 2 diabetes mellitus with chronic kidney disease, without long-term current use of insulin, unspecified CKD stage Observe for worsening s/s. Relat ed to Type 2 diabetes mellitus with chronic kidney disease, without long-term current use of insulin, unspecified CKD stage Proper diet, exercis e and activity and activity Related to Hyperlipidemia, unspecified hyperlipidemia type Proper medication in take, observe for side effects Related to Hyperlipidemia, unspecified hyperlipidemia type Follow a low calorie . Weight management Related to Hyperlipidemia, unspecified hyperlipidemia type Call office with any acute concerns. Related to Type 2 diabetes mellitus with chronic kidney disease, without long-term current use of insulin, unspecified CKD stage Take medication as directed. Rel ated to Essential hypertension Stop smoking. Related to Essen tial hypertension Follow a low sodium diet. Relate d to Essential hypertension Call office with any acute concerns. 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 Relat ed to Type 2 diabetes mellitus with chronic kidney disease, without long-term current use of insulin, unspecified CKD stage Take medication as directed. Rel ated to Type 2 diabetes mellitus with chronic kidney disease, without long-term current use of insulin, unspecified CKD stage Follow a low calorie . Weight management Related to Hyperlipidemia, unspecified hyperlipidemia type Proper medication in take, observe for side effects Related to Hyperlipidemia, unspecified hyperlipidemia type Proper diet, exercis e and activity and activity Related to Hyperlipidemia, unspecified hyperlipidemia type Increase activity. Related to Es sential hypertension Take medication as directed. Rel ated to Essential hypertension Follow a low sodium diet. Relate d to Essential hypertension Use medication as directed. Rela jose carlos to Generalized psoriasis Observe for worsening s/s. Relat ed to Generalized psoriasis Increase activity. Related to Es sential hypertension Take medication as directed. Rel ated to Essential hypertension Follow a low sodium diet. Relate d to Essential hypertension Take medication as directed. Rel ated to AAA (abdominal aortic aneurysm) without rupture Call office with any acute concerns. Related to Generalized psoriasis Clean equipment as directed. Rel ated to Obstructive sleep apnea Proper sleep hygiene. Related to Obstructive sleep apnea Use medication as directed. Rela jose carlos to Generalized psoriasis Observe for worsening s/s. Relat ed to Generalized psoriasis Call office with any acute concerns. Related to Generalized psoriasis Take medication as directed. Rel ated to Type 2 diabetes mellitus with chronic kidney disease, without long-term current use of insulin, unspecified CKD stage Observe for worsening s/s. Relat ed to Type 2 diabetes mellitus with chronic kidney disease, without long-term current use of insulin, unspecified CKD stage Call office with any acute concerns. Related to Type 2 diabetes mellitus with chronic kidney disease, without long-term current use of insulin, unspecified CKD stage Wear cpap as directed. Related t o Obstructive sleep apnea Call office with any acute concerns. Related to AAA (abdominal aortic aneurysm) without rupture Observe for worsening s/s. Relat ed to AAA (abdominal aortic aneurysm) without rupture Take medication as directed Rela jose carlos to Type 2 diabetes mellitus with chronic kidney disease, without long-term current use of insulin, unspecified CKD stage Observe for worsening s/s. Relat ed to Type 2 diabetes mellitus with chronic kidney disease, without long-term current use of insulin, unspecified CKD stage Check blood sugars d aily and record. Related to Type 2 diabetes mellitus with chronic kidney disease, without long-term current use of insulin, unspecified CKD stage Follow a low sodium diet. Relate d to Essential hypertension Use cpap as directed. Related to Obstructive sleep apnea Observe for worsening s/s. Relat ed to Obstructive sleep apnea Clean and maintain e quipment as directed Related to Obstructive sleep apnea Take and use medication as direc jose carlos Related to Generalized psoriasis Observe for worsening s/s. Relat ed to Generalized psoriasis Call office with any acute concerns. Related to Generalized psoriasis Take medication as directed Rela jose carlos to Essential hypertension Stop smoking. Related to Essen tial hypertension Increase activity. Related to Es sential hypertension Take medication as directed. Rel ated to Essential hypertension Follow a low sodium, heart healthy diet. Related to Essential hypertension Proper diet, exercis e and activity and activity Related to Hyperlipidemia, unspecified hyperlipidemia type Proper medication in take, observe for side effects Related to Hyperlipidemia, unspecified hyperlipidemia type Take medication as directed Rela jose carlos to Hyperlipidemia, unspecified hyperlipidemia type Encouraged home bloo d sugar monitoring. Avoid hypoglycemia Related to Type 2 diabetes mellitus without complication, without long-term current use of insulin Proper diet, exercis e and activity. Goal of treatment explained Related to Type 2 diabetes mellitus without complication, without long-term current use of insulin Encouraged routine e ye, dental and foot care. Immunization Related to Type 2 diabetes mellitus without complication, without long-term current use of insulin Take medication as directed. Rel ated to Type 2 diabetes mellitus without complication, without long-term current use of insulin Call office with any acute concerns. Related to Type 2 diabetes mellitus without complication, without long-term current use of insulin Use OTC medication as directed R elated to Allergic contact dermatitis, unspecified trigger Use a hydrating lotion daily. Re lated to Allergic contact dermatitis, unspecified trigger Call office with any acute concerns. Related to Allergic contact dermatitis, unspecified trigger Stop smoking. Related to Essen tial hypertension Follow a low sodium diet. Relate d to Essential hypertension Take medication as directed. Rel ated to Type 2 diabetes mellitus with complication, without long-term current use of insulin Observe for worsening s/s. Relat ed to Type 2 diabetes mellitus with complication, without long-term current use of insulin Check blood sugars a s directed. Check feet daily. Related to Type 2 diabetes mellitus with complication, without long-term current use of insulin Illness associated w ith continuing use discussed Related to Tobacco dependence Take medication as directed Rela jose carlos to Essential hypertension Follow a low sodium diet. Relate d to Essential hypertension Have labs completed as soon as possible. Related to Essential hypertension Take medication as directed. Rel ated to Type 2 diabetes mellitus with complication, without long-term current use of insulin Have labs completed as soon as possible. Related to Type 2 diabetes mellitus with complication, without long-term current use of insulin Follow a DM diet. Related to Typ e 2 diabetes mellitus with complication, without long-term current use of insulin Have labs completed as soon as possible. Related to Screening for cardiovascular condition Quit smoking. Related to Scree joe for cardiovascular condition Have labs completed as soon as possible. Related to Screening for malignant neoplasm of prostate Observe for worsening s/s. Relat ed to H/O myocardial infarction, greater than 8 weeks Take medication as directed. Rel ated to Hyperlipidemia, unspecified hyperlipidemia type Have labs completed as soon as possible. Related to Hyperlipidemia, unspecified hyperlipidemia type Stop smoking. Related to Hyper lipidemia, unspecified hyperlipidemia type Take medication as directed. Rel ated to Essential hypertension Have labs completed as soon as possible. Related to Essential hypertension Take medication as directed. Rel ated to Hyperlipidemia, unspecified hyperlipidemia type Have labs completed as soon as possible. Related to Hyperlipidemia, unspecified hyperlipidemia type Stop smoking. Related to Hyper lipidemia, unspecified hyperlipidemia type Assessments Type Assessment Date No Information Patient Care Teams Name Effective Dates (start - stop) Status Members No Information
--- OUTSIDE RECORDS SUMMARY | 2025-04-09 08:59 | XMS_ITS | Continuity of Care Document ---
Author Organization [facility] [place] [address] [place] [address] [place] [address] Phone Care Team Providers Care Director Of Market Analysis Name Role Phone Silvano Day MD Unavailable Unavailable Allergies, Adverse Reactions, Alerts Substance Reaction Status Criticality ampicillin Active No Information Medications Medication Instructions Dosage Effective Dates (start - stop) Status Comments amlodipine 5 mg tablet TAKE 1 TABLET BY ORAL ROUTE EVERY NIGHT. - Active atorvastatin 20 mg tablet TAKE 1 TABLET BY ORAL ROUTE EVERY DAY - Active lisinopril 40 mg tablet TAKE 1 TABLET BY ORAL ROUTE EVERY DAY - Active metformin 500 mg tablet TAKE 1 TABLET BY ORAL ROUTE 2 TIMES EVERY DAY WITH MORNING AND EVENING MEALS - Active metoprolol tartrate 50 mg tablet TAKE 1 TABLET BY ORAL ROUTE 2 TIMES EVERY DAY WITH MEALS - Active aspirin 81 mg tablet,delayed release take 1 tablet by oral route every day 81 MG - Active Procedures Procedure Date No Charge Refraction No Charge GDX Retina IOLMaster-Technical No Charge Orbscan No Charge Optomap Fundus Photos 021 Office/outpatient Visit, New Advance Directives Directive Yes / No Effective Date File Name No Information Encounters Encounter Description Practice Location Reason(s) For Visit Diagnoses Date Provider Providers Copied on Encounter [facility], [address], [place], [place], [id number], [place] tel:[phone] SEC Jose Lara No Information 1 Shay Schaefer. [address], [place], [place], [address], [place]. tel:[phone] Office/outpa tient Visit, [facility], [address] [place] [address] [address], [place], [place], [address], tel:[phone] SEC Juan Luis [place] Professional Cataract evaluation (chief complaint) Type 2 diabetes mellitus without complications Dry eye syndrome of bilateral lacrimal glandsAge-rel ated nuclear cataract, bilateral 1 Shay Schaefer. [address] [facility], [place], [place], [address], [place]. tel:[phone] Referring Provider: Roshan Reid OD, [address] [place], [address]. tel:[phone] [facility], [address] [place], [place] [address], [place], [place], [address], [place] tel:[phone] SEC Jose Lara No Information 1 Shay Schaefer. [address], [facility] [place], [address], [place]. tel:[phone] Family History Family Member Type Diagnosis Age At Onset No Information Payers Payer name Insurance type Covered green party ID Authoriza tion(s) [place] [id number] Social History Type Description Quantity Date Captured Comments Alcohol Use Details Unknown Caffeine Use Details Unknown Tobacco Use Status Smoking Status No Information Sex Male Chief Complaint And Reason For Visit No Information Reason For Referral Reason For Referral No Information Plan Of Treatment Date Type Action Status Goal Tobacco cessation counseling completed Patient Education Cataract Surgery: What to Expect at H~ completed History Of Present Illness Encounter Date Complaint History Of Prese nt Illness Cataract evaluation The 71 year old male presents for a cataract evaluation per Dr. Reid. Patient is a Type II diabetic and doesn't check BS. Patient is having a hard time reading small print x 6 months. Patient states he is having a hard time seeing road signs and watching TV. Patient is bothered by glare around lights at night. Patient states the Dr. bridger Malave told him the left eye was bleeding. Functional Status Date Functional Assessmen t No Information Instructions Date Instruction Additional Infor avelino Impression/Plan Assessments Type Assessment Date No Information Patient Care Teams Name Effective Dates (start - stop) Status Members No Information
[2025-04-09 09:10] LABS: Hematocrit 44.2 % (37.0-46.0); Mean Corpuscular HGB Conc 31.7 g/dL (32-36); Mean Corpuscular Hemoglobin 28.6 pg (27.0-31.0); Mean Corpuscular Volume 90.2 fL (78.0-102.0); Mean Platelet Volume 9.6 fl (8.7-11.0); Platelet Count Result 476 K/mm3 (150-420); Red Cell Distribution Width 14.1 % (11.6-14.4); White Blood Count 7.7 K/mm3 (4.8-10.8)
[2025-04-09 09:23] LABS: INR 2.1; Prothrombin Time 21.4 Seconds (9.50-12.1)
[2025-04-09 09:29] LABS: Anion Gap 6 mmol/L (4-12); Blood Urea Nitrogen 20 mg/dL (9-20); Calcium 8.7 mg/dL (8.4-10.2); Carbon Dioxide 22 mmol/L (22-30); Chloride 108 mmol/L (98-107); Estimated Glomerular Filt Rate > 60; Glucose 192 mg/dL (65-110); Osmolality Calculated 289 mOsm/kg (285-295); Potassium 4.5 mmol/L (3.4-5.0); Sodium 136 mmol/L (137-145)
== END 2025-04-09 08:28 | disposition home or self-care (01) ==
LOC: CHSLAB 08:47
DX: E11.9 Type 2 diabetes mellitus without complications (principal); I73.9 Peripheral vascular disease, unspecified; I25.10 Atherosclerotic heart disease of native coronary artery without angina pectoris; I51.3 Intracardiac thrombosis, not elsewhere classified
CPT/HCPCS: 36415; 80048; 85027; 85610

== ENCOUNTER 2025-04-23 14:37 | Outpatient (CLI) | payer MEDICARE, SELFPAY ==
--- OUTSIDE RECORDS SUMMARY | 2025-04-23 14:42 | XMS_ITS | Continuity of Care Document ---
Author Organization [facility] Address [address] [place] [address] [place] [address] Phone Care Team Providers Care [employer] Tech Name Role Phone Silvano Day MD Unavailable Unavailable Allergies, Adverse Reactions, Alerts Substance Reaction Status Criticality ampicillin Active No Information Medications Medication Instructions Dosage Effective Dates (start - stop) Status Comments metoprolol tartrate 50 mg tablet TAKE 1 TABLET BY ORAL ROUTE 2 TIMES EVERY DAY WITH MEALS - Active metformin 500 mg tablet TAKE 1 TABLET BY ORAL ROUTE 2 TIMES EVERY DAY WITH MORNING AND EVENING MEALS - Active lisinopril 40 mg tablet TAKE 1 TABLET BY ORAL ROUTE EVERY DAY - Active atorvastatin 20 mg tablet TAKE 1 TABLET BY ORAL ROUTE EVERY DAY - Active amlodipine 5 mg tablet TAKE 1 TABLET BY ORAL ROUTE EVERY NIGHT. - Active aspirin 81 mg tablet,delayed release [...] Diagnoses Date Provider Providers Copied on Encounter [facility], [address], [place], [place], [address], [place] tel:[phone] SEC Jose Lara No Information 1 Shay Schaefer. [address] [facility], [place], [place], [address], [place]. tel:[phone] Office/outpa tient Visit, [facility], [address] [place] [address] [address], [place], [place], [address], tel:[phone] SEC Juan Luis [place] Professional Cataract evaluation (chief complaint) Type 2 diabetes mellitus without complications Dry eye syndrome of bilateral lacrimal glandsAge-rel ated nuclear cataract, bilateral 1 Shay Schaefer. [address] [facility], [address], [place], [place], [address], [place]. tel:[phone] Referring Provider: Roshan Reid OD, [address] [place], [address]. tel:[phone] [facility], [address] [place], [place] [address], [place], [place], [address], [place] tel:[phone] SEC Jose Lara No Information 1 Shay Schaefer. [address] [facility], [facility] [place], [address], [place]. tel:[phone] Family History Family Member Type Diagnosis Age At Onset No Information Payers Payer name Insurance type Covered green party ID Authoriza tion(s) [place] [id number] Social History Type Description Quantity Date Captured [...]
--- OUTSIDE RECORDS SUMMARY | 2025-04-23 14:42 | XMS_ITS | Continuity of Care Document ---
Author Organization [employer] Address [address] [place] [id number] Phone Care Team Providers Care Screen Tacker Name Role Phone Javier CONTRERAS HOUSEKEEPING DEPARTMENT WORKER-C, Tasha Unavailable Unavai lable Allergies, Adverse Reactions, [...] Diagnoses Date Provider Providers Copied on Encounter [facility], [address] [place] [address], [facility], tel:[phone] [facility] No Information 4 Javier Tasha. [address], [place], [facility], [place]. tel: [phone] [facility], [address] [place] [address], [facility], tel:[phone] [place] [address] No Information 4 Javier Tasha. [address], [place], [facility], [place]. tel: [phone] OFFICE/OUTPA TIENT VISIT, [facility], [address] [place] [address], [facility], tel: [phone] [facility] ER FOLLOW UP (chief complaint) Bladder massEnlarged prostateInfrarenal abdominal aortic aneurysm (AAA) without rupture 4 Javier Tasha. [address], [place], [facility], [place]. tel: [phone] [facility], [address] [place] [address], [facility], [place] tel: [phone] [facility] Abnormal CT scan, lungAAA (abdominal aortic aneurysm) without rupture 4 Javier Tasha. [address] [place], [address], [place]. tel: [phone] OFFICE/OUTPA TIENT VISIT, [facility], [address] [place] [address], [facility], [place] tel:[phone] [facility] 6 MONTH CHECK UP (chief complaint) Chronic bilateral low back pain with bilateral sciaticaLumbago with sciatica, right sideOther chronic painStatus post fallChronic left hip painType 2 diabetes mellitus with chronic kidney disease, without long-term current use of insulin, unspecified CKD stageEssential (primary) hypertensionMixed hyperlipidemiaNico bernadette dependence, cigarettes, uncomplicated Hans- 0 4 Javier Tasha. [address] [place], [place], [facility], [place]. tel: [phone] [facility], [address] [place] [address], [facility], [place] tel:[phone] [facility] No Information 4 Javier Tasha. [address] [place], [address], [place]. tel: [phone] OFFICE/OUTPA TIENT VISIT, [facility], [address] [place] [address], [address], [place] tel:[phone] [facility] diabetes (chief complaint) Type 2 diabetes mellitus without complication, without long-term current use of insulinHyperalbumi nemiaEssential (primary) hypertension 3 Javier Tasha. [address] [place], [address], [place]. tel: [phone] OFFICE/OUTPA TIENT VISIT, [facility], [address] [place] [address], [address], [place] tel:[phone] [facility] LAB DRAW (chief complaint) Essential (primary) hypertensionHyperl ipidemia, unspecified hyperlipidemia type Nov- 3 Javier Tasha. [address] [place], [address], [place]. tel: [phone] [facility], [address] [place] [address], [address], [place] tel:[phone] [facility] No Information 3 Javier Tasha. [address] [place], [address], [place]. tel: [phone] [facility], [address] [place] [address], [facility], [place] tel:[phone] [facility] MCR wellness (chief complaint) Medicare annual wellness visit, subsequentBMI 29.0-29.9,adultAAA (abdominal aortic aneurysm) without ruptureEssential (primary) hypertensionGenera lized psoriasisH/O myocardial infarction, greater than 8 weeksH/O two vessel coronary artery bypass graftHyperlipidemi a, unspecified hyperlipidemia typeObstructive sleep apneaPulmonary nodulesType 2 diabetes mellitus with chronic kidney disease, without long-term current use of insulin, unspecified CKD stageNicotine dependence, cigarettes, uncomplicated 3 Javier Tasha. [address] [place], [address], [place]. tel: [phone] OFFICE/OUTPA TIENT VISIT, [facility], [address] [place] [address], [facility], [place] tel:[phone] [facility] CHECK UP (chief complaint) Essential (primary) hypertensionType 2 diabetes mellitus without complication, without long-term current use of insulinHyperlipide cathie, unspecified hyperlipidemia type 3 Javier Tasha. [address] [place], [address], [place]. tel: [phone] OFFICE/OUTPA TIENT VISIT, [facility], [address] [place] [address], [address], [place] tel:[phone] [facility] LIVING WILL HELP (chief complaint) Living will, counseling/discuss ionPulmonary nodules 2 Javier Tasha. [address] [place], [address], [place]. tel: [phone] [facility], [address] [place] [address], [address], [place] tel:[phone] [facility] H/O myocardial infarction, greater than 8 weeksH/O two vessel coronary artery bypass graftObstructive sleep apneaEssential (primary) hypertension 2 Javier Cordova. [address] [place], [address], [place]. tel: [phone] [facility], [address] [place] [address], [address], [place] tel: [phone] [facility] wellness (chief complaint) Encounter for Medicare annual wellness exam 2 Javier Cordova. [address] [place], [address], [place]. tel: [phone] OFFICE/OUTPA TIENT VISIT, [facility], [address] [place] [address], [address], [place] tel: [phone] [facility] [place] - LAB DRAW (chief complaint) Hyperlipidemia, unspecified hyperlipidemia type 2 Breckleatha Porsha. [address] [place] [address], [address], [place]. tel: [phone] OFFICE/OUTPA TIENT VISIT, [facility], [address] [place] [address], [address], [place] tel: [phone] [facility] FOLLOW UP (chief complaint) Traumatic rhabdomyolysis, subsequent encounterUncontrol led hypertensionHospit al discharge follow-up 2 Javier Cordova. [address] [place], [address], [place]. tel: [phone] OFFICE/OUTPA TIENT VISIT, [facility], [address] [place] [address], [address], [place] tel: [phone] [facility] PRE OP PHYSICAL (chief complaint) Cataract of right eye, unspecified cataract typePre-op exam 2 Javier Cordova. [address] [place], [address], [place]. tel: [phone] OFFICE/OUTPA TIENT VISIT, [facility], [address] [place] [address], [address], [place] tel:[phone] [facility] PRE OP CATARACT (chief complaint) Cataract of both eyes, unspecified cataract typePre-op examination 2 Javier Tasha. [address] [place], [address], [place]. tel: [phone] PHONE E/M BY PHYS 11-20 MIN [facility], [address] [place] [address], [address], [place] tel: [phone] [facility] 6 MONTH CHECK UP (chief complaint) Essential hypertensionType 2 diabetes mellitus with chronic kidney disease, without long-term current use of insulin, unspecified CKD stageAAA (abdominal aortic aneurysm) without rupture 1 Javier Tasha. [address] [place], [address], [place]. tel: [phone] OFFICE/OUTPA TIENT VISIT, [facility], [address] [place] [address], [address], [place] tel: [phone] [facility] 4 MONTH CHECK UP (chief complaint) COVID SCREENING COMPLETED/ 97.6 TEMP AT ARRIVAL (chief complaint) Type 2 diabetes mellitus with chronic kidney disease, without long-term current use of insulin, unspecified CKD stageEssential hypertensionHyperl ipidemia, unspecified hyperlipidemia type 0 Javier Tasha. [address] [place], [address], [place]. tel: [phone] OFFICE/OUTPA TIENT VISIT, [facility], [address] [place] [address], [address], [place] tel: [phone] [facility] LABS (chief complaint) Essential hypertension 0 Javier Tasha. [address] [place], [address], [place]. tel: [phone] [facility], [address] [place] [address], [address], [place] tel:[phone] [facility] 4 MONTH CHECK UP (chief complaint) Essential hypertensionHyperl ipidemia, unspecified hyperlipidemia typeType 2 diabetes mellitus with chronic kidney disease, without long-term current use of insulin, unspecified CKD stage 0 Javier Tasha. [address] [place], [address], [place]. tel: [phone] OFFICE/OUTPA TIENT VISIT, [facility], [address] [place] [address], [address], [place] tel: [phone] [facility] 4 MONTH CHECK UP (chief complaint) Essential hypertensionAAA (abdominal aortic aneurysm) without ruptureGeneralized psoriasisType 2 diabetes mellitus with chronic kidney disease, without long-term current use of insulin, unspecified CKD stageObstructive sleep apnea 9 Javier Tasha. [address] [place], [address], [place]. tel: [phone] OFFICE/OUTPA TIENT VISIT, [facility], [address] [place] [address], [facility], [place] tel: [phone] [facility] 4 MONTH CHECK UP (chief complaint) Type 2 diabetes mellitus with chronic kidney disease, without long-term current use of insulin, unspecified CKD stageGeneralized psoriasisObstructi ve sleep apneaEssential hypertension 9 Javier Tasha. [address] [place], [address], [place]. tel: [phone] OFFICE/OUTPA TIENT VISIT, [facility], [address] [place] [address], [address], [place] tel: [phone] [facility] BLOOD PRESSURE CHECK (chief complaint) Blood pressure check 9 Papi Rodriguez. [address] [place] [address], [address], [place]. tel: [phone] OFFICE/OUTPA TIENT VISIT, [facility], [address] [place] [address], [address], [place] tel: [phone] [facility] LAB FOLLOW UP (chief complaint) Essential hypertensionHyperl ipidemia, unspecified hyperlipidemia typeType 2 diabetes mellitus without complication, without long-term current use of insulinAllergic contact dermatitis, unspecified trigger 9 Javier Tasha. [address] [place], [address], [place]. tel: [phone] OFFICE/OUTPA TIENT VISIT, [facility], [address] [place] [address], [address], [place] tel: [phone] [facility] [place] - LAB DRAW (chief complaint) Type 2 diabetes mellitus with unspecified complications 0201 9 Javier Tasha. [address] [place], [facility], [place]. tel: [phone] OFFICE/OUTPA TIENT VISIT, [facility], [address] [place] [address], [address], [place] tel: [phone] [facility] 3 month med check (chief complaint) Essential hypertensionType 2 diabetes mellitus with complication, without long-term current use of insulinTobacco dependence 9 Javier Tasha. [address], [facility], [place]. tel: [phone] OFFICE/OUTPA TIENT VISIT, [facility], [address] [place] [address], [address], [place] tel: [phone] [facility] blood pressure check (chief complaint) Blood pressure check 8 Javier Tasha. [address], [facility], [place]. tel: [phone] [facility], [address] [place] [address], [address], [place] tel: [phone] [facility] Essential hypertensionBlood pressure checkAAA (abdominal aortic aneurysm) without rupture 8 8 Javier Tasha. [address] [place], [address], [place]. tel: [phone] [facility], [address] [place] [address], [address], [place] tel: [phone] [facility] here for blood pressure check (chief complaint) Essential hypertension 5 8 Javier Tasha. [address], [facility], [place]. tel: [phone] OFFICE/OUTPA TIENT VISIT, [facility], [address] [place] [address], [facility], tel:[phone] [facility] [place] - BLOOD DRAW (chief complaint) Essential hypertensionHyperl ipidemia, unspecified hyperlipidemia typeScreening for cardiovascular conditionScreening for malignant neoplasm of prostateType 2 diabetes mellitus with complication, without long-term current use of insulin 0 2 8 Javier Tasha. [address] [place], [address], [place]. tel: [phone] OFFICE/OUTPA TIENT VISIT, [facility], [address] [place] [address], [address], tel:[phone] [facility] EST CARE (chief complaint) Establishing care with new doctor, encounter forEssential hypertensionHyperl ipidemia, unspecified hyperlipidemia typeType 2 diabetes mellitus with complication, without long-term current use of insulinScreening for cardiovascular conditionScreening for malignant neoplasm of prostateH/O myocardial infarction, greater than 8 weeksH/O two vessel coronary artery bypass graftTobacco dependence Jul-0 8 Javier Tasha. [address] [place], [address], [place]. tel: [phone] Family History Family Member Type Diagnosis Age At Onset Paternal grandfather Problem (finding) Myocardial infa rction Brother Problem (finding) Myocardial infarction Sister Problem (finding) Myocardial infarction Father Problem (finding) Myocardial infarction Mother Problem (finding) Diabetes mellitus Immunizations Vaccine Date Status Comments Moderna COVID-19 Vaccine administered [facility]: Other Registry Moderna COVID-19 Vaccine administered [facility]: Other Registry Payers Payer name Insurance type Covered green party ID Authorabbya tileatha(s) [facility] [id number] Social History Type Description Quantity Date Captured [...] mass) ordered Referral Ordered: Referrals: Oncology. Location: [facility]. Assume care ordered Referral Ordered: Referrals: Urology. Location: [facility]. Assume care ordered Referral Ordered: Vascular Surgery (related to AAA (abdominal aortic aneurysm) without rupture) ordered Referral Ordered: Referrals: Vascular Surgery. Location: [facility]. Assume care ordered Referral Ordered: [...] ordered Referral Referred To: Zonia Schuler [address] [place] [address], [address] [phone] Ordered: Referrals: Allopathic & Osteopathic Physicians : Internal Medicine. Zonia Schuler. Evaluate and treat Appointment date/timeframe: 04/25/2022 ordered Referral Referred To: Aquiles Wilkinson [address] [place], [id number] [phone] Ordered: Referrals: Allopathic & Osteopathic Physicians : [...] Test completed Patient Education Home Blood Pressure Virginai t: About This Test completed Patient Education [...] is here for e r f/u from [facility] on 05/06. Pt states he had blood in his urine. CT of abdomen and labs were done. Pt states they didn't send him home with any medications and symptoms have since subsided. Pt states they mentioned getting an urology referral. Comments: Pt pre sents to the clinic for an ER follow up. Pt states that he went to [facility] to have his scheduled CT scan for [...] smoking and he states understanding. LAB DRAW [facility] wellness Depression scree joe score was 2. [...] a day 0 time(s). Comments: PT's B DC is noted to be 29.13. Pt was [...] Patient states that he recently seen his tight rope walker and they did decrease his metoprolol dosing [...] had his blood pressure checked at his tight rope walker's office and it was 130/80 the other [...] to make his daughter's his power of early interventionist and has discussed this with them. I [...] the patient about his previous hospitalization at [facility] and that he did have some numerous lung nodules that they did recommend a 6-month follow-up on and I will order that CT for him. [facility] wellness Depression scree joe score was 1. [...] more drinks in a day 0 time(s). [facility] wellness (comments) Pt's risk strat score is [...] EMS was called. Pt was transported to [facility] for evaluation. Pt states that he was evaluated and transferred to [facility] for admission. Pt was dx with rhabdo. Pt states that he was in the hospital for approx 1 week. Pt states that he was then transferred to [facility] for rapid recovery. PT states that he was at the intermediate for approx 1 week. Pt states that he has been home for approx 2-3 weeks. Pt states that he has follow up with the Well [facility] Derrick Worker per the hospital discharge follow up. Pt [...] while he was in the hospital and intermediate but states that he has a hearty [...] will packet and encouraged to contact a forest worker to help him complete his paperwork that he wants done. PRE OP PHYSICAL (comments) Pt presents to the clinic for a pre-op e xam. Pt is scheduled to have surgery with Dr. Liz on 12/15/21 for right eye cataract removal. Pt states that he is having surgery at [facility].Pt states the following:Allergies- Ampicillin, CT iodine contrastMedications [...] states that he is having surgery at [facility].Pt states the following:Allergies- Ampicillin, CT iodine contrastMedications [...] that he has not followed up with [facility] due to his AAA and states that he really did not care for the doctor that he was previously seeing. Patient was advised that I really would like him to follow-up with cardiology yearly at least to have someone follow him for his AAA screening and he states verbal understanding. Patient is requesting a female physician preferably in [place] if possible. I did advise patient that [...] that he will do those at [facility]. Patient was encouraged to follow-up in 6 months and to call the office with any acute concerns.Patient's visit lasted 20 minutes. 6 MONTH CHECK UP 4 MONTH CHECK UP (comments) Patient presents to the clinic today to discuss his most recent labs that he had drawn at [facility] on 04/09/2020. Patient's glucose was noted to [...] well and is soon to follow-up with tight rope walker but he does not have an appointment [...] he has not followed up with his tight rope walker recently but states that he is due for his year when soon. Patient states that he is been reviewing old medical records and states that he has not found any records of an aneurysm in the past but states that his tight rope walker wears that he has had one previously. [...] presents to the clinic for a 4-m [facility] checkup with regards to his type 2 [...] worse. Patient states that he has tried rvyf-[id number] hydrocortisone cream with no improvement. Patient states [...] that he needs a new CPAP from [employer]. Patient states that he has had his [...] order and send it over today to [employer] and he states verbal understanding. Patient was [...] would refer these lab results to his tight rope walker and he states verbal understanding. Patient is [...] does have an appointment scheduled with his tight rope walker in the next couple of weeks. Patient [...] states that he has been using some evha-mpr-tojvpzj cream but is unsure of what it [...] he has been following up with his tight rope walker as directed and was evaluated for his aneurysm in his abdomen and it was advised that it has not grown in over 10 years and it was the exact same size as previous. Nurse Practitioner states that he will monitor and he will follow-up with him yearly for this. Patient states that the tight rope walker did change his lisinopril dosing from 20 [...] Information Instructions Date Instruction Additional Infor avelino Call office with any acute concerns. Related to Bladder mass Attend scheduled tae t with specialists. Related to Bladder mass Observe for worsening s/s. Relat ed to Bladder mass Attend scheduled tae t [...] possible. Related to Chronic left hip pain Have Ct done as scheduled. Relat ed to Nicotine dependence, cigarettes, uncomplicated Follow a low calorie . Weight management Related to Mixed hyperlipidemia Proper medication in take, observe for side effects Related to Mixed hyperlipidemia Call office with any acute concerns. Related [...] smoking. Related to Essen tial (primary) hypertension Observe for worsening s/s. Relat ed to Type 2 diabetes mellitus without complication, without long-term current use of insulin Increase activity. Related to Es sential (primary) hypertension Encouraged home bloo d sugar [...] with any acute concerns. Related to Hyperalbuminemia Take medication as directed. Rel ated to [...] to Pulmonary nodules Counseled on dietary changes Counseled on weight reduction Increase clear fluids. Related t o Encounter for Medicare annual wellness exam Proper diet and exercise. Relate d to Encounter for Medicare annual wellness exam Proper sleep hygiene. Related to Encounter for Medicare annual wellness exam Take medication as directed. Rel ated to Traumatic rhabdomyolysis, subsequent encounter Increase clear fluids. Related t o Traumatic rhabdomyolysis, subsequent encounter Observe for worsening s/s. Relat ed to Traumatic rhabdomyolysis, subsequent encounter Take medication as directed. Rel ated to Hospital discharge follow-up Observe for worsening s/s. Relat ed to Hospital discharge follow-up Call office with any acute concerns. Related to Hospital discharge follow-up Pt METS score >4. Related to Cat [...] current use of insulin, unspecified CKD stage Attend scheduled tae t with specialists. Related to AAA (abdominal aortic aneurysm) without rupture Have xrays completed as soon as possible. Related to AAA (abdominal aortic aneurysm) without rupture Increase activity. Related to Es sential hypertension [...] worsening s/s. Relat ed to Generalized psoriasis Take medication as directed. Rel ated to Essential hypertension Follow a low sodium diet. Relate d to Essential hypertension Take medication as directed. Rel ated to AAA (abdominal aortic aneurysm) without rupture Increase activity. Related to Es sential hypertension Call office with any acute concerns. Related to Generalized psoriasis Use medication as directed. Rela jose carlos [...] directed. Related t o Obstructive sleep apnea Clean equipment as directed. Rel ated to Obstructive sleep apnea Proper sleep hygiene. Related to Obstructive sleep apnea Call office with any [...] current use of insulin, unspecified CKD stage Clean and maintain e quipment as directed [...] s/s. Relat ed to Obstructive sleep apnea Take medication as directed. Rel ated to Essential hypertension Increase activity. Related to Es sential hypertension Follow a low sodium, heart healthy [...] current use of insulin Take medication as directed Rela jose carlos to Essential hypertension Illness associated w ith continuing use discussed Related to Tobacco dependence Follow a low sodium diet. Relate d [...] soon as possible. Related to Essential hypertension Assessments Type Assessment Date No Information Patient Care Teams Name Effective Dates (start - stop) Status Members No Information
[2025-04-23 15:16] LABS: INR 4.5; Prothrombin Time 43.0 Seconds (9.50-12.1)
== END 2025-04-23 14:38 | disposition home or self-care (01) ==
DX: I21.3 ST elevation (STEMI) myocardial infarction of unspecified site (principal); I10 Essential (primary) hypertension; I23.1 Atrial septal defect as current complication following acute myocardial infarction; I63.532 Cerebral infarction due to unspecified occlusion or stenosis of left posterior cerebral artery
CPT/HCPCS: 36415; 85610

== ENCOUNTER 2025-05-14 08:30 | Outpatient (CLI) | payer MEDICARE, SELFPAY ==
[2025-05-14 09:04] LABS: INR 3.9; Prothrombin Time 37.4 Seconds (9.50-12.1)
== END 2025-05-14 08:31 | disposition home or self-care (01) ==
LOC: CHSLAB 08:33
DX: Z79.01 Long term (current) use of anticoagulants (principal)
CPT/HCPCS: 36415; 85610